=== PATIENT | female | born 1980 | race Caucasian/White ===

== ENCOUNTER 2017-09-14 16:39 | Emergency (ER) | payer BC ==
--- NOTE | 2017-09-14 18:08 | ED ---
Respiratory - HPI Summary HPI Summary: 37 yr old female with the complaint of coughing for 3-4 weeks. She states she has had persistent coughing, clear sputum. Denies CP, SOB. Denies fever or chills. Denies dizziness. She states she is not a smoker. No history of asthma. - History of Current Complaint Chief Complaint: UCGeneralIllness Stated Complaint: COUGH/COLD Time Seen by Provider: 09/14/17 17:39 - Allergy/Home Medications Allergies/Adverse Reactions: Allergies Allergy/AdvReac Type Severity Reaction Status Date / Time No Known Allergies Allergy Verified 09/14/17 17:16 Home Medications: Home Medications Folic Acid TAB* [Folvite TAB*] 1 mg PO DAILY 09/14/17 [History Confirmed ] Perampanel [Fycompa] 2 mg PO DAILY 09/14/17 [History Confirmed 09/14/17] Pseudoephedrine-Guaifenesin [Mucinex D 60-600 mg] 1 tab PO DAILY PRN 09/14/17 [ History Confirmed 09/14/17] carBAMazepine TAB(*) [TEGretol TAB(*)] 200 mg PO SEE INSTRUCTIONS 09/14/17 [ History Confirmed 09/14/17] PMH/Surg Hx/FS Hx/Imm Hx - Surgical History Surgery Procedure, Year, and Place: VAGAL NERVE STIM IMPLANT Infectious Disease History: No Infectious Disease History: Denies: Traveled Outside the [place] in Last 30 Days - Family History Known Family History: Positive: None - Social History Alcohol Use: None Substance Use Type: Reports: Prescribed Smoking Status (MU): Never Smoked Tobacco Review of Systems Constitutional: Negative Positive: Cough All Other Systems Reviewed And Are Negative: Yes Physical Exam Triage Information Reviewed: Yes Vital Signs On Initial Exam: Initial Vitals Temp Pulse Resp BP Pulse Ox 98.3 F 74 18 123/52 97 09/14/17 17:08 09/14/17 17:08 09/14/17 17:08 09/14/17 17:08 09/14/17 17:08 Vital Signs Reviewed: Yes Appearance: Positive: Well-Appearing, No Pain Distress Skin: Positive: Skin Color Reflects Adequate Perfusion Head/Face: Positive: Normal Head/Face Inspection Eyes: Positive: EOMI ENT: Positive: Pharynx normal, TMs normal Neck: Positive: Supple, Nontender Respiratory/Lung Sounds: Positive: Clear to Auscultation, Breath Sounds Present Cardiovascular: Positive: RRR. Negative: Murmur Abdomen Description: Positive: Nontender Musculoskeletal: Positive: Strength/ROM Intact. Negative: Edema Left, Edema Right Neurological: Positive: Sensory/Motor Intact, Alert, Oriented to Person Place, Time, CN Intact II-III Psychiatric: Positive: Normal - Syd Coma Scale Best Eye Response: 4 - Spontaneous Best Motor Response: 6 - Obeys Commands Best Verbal Response: 5 - Oriented Diagnostics - Vital Signs Vital Signs Temp Pulse Resp BP Pulse Ox 09/14/17 17:08 98.3 F 74 18 123/52 97 - Laboratory Lab Statement: Any lab studies that have been ordered have been reviewed, and results considered in the medical decision making process. - Radiology chest xray Xray Interpretation: Positive (See Comments) Radiology Interpretation Completed By: Radiologist Disposition - Course Course Of Treatment: 37 yr old with right lower lobe pneumonia. Plan DC home on antibiotics. - Diagnoses Provider Diagnoses: Pneumonia Discharge - Discharge Plan Condition: Good Disposition: HOME Prescriptions: Amoxicillin/Clavulanate TAB* [Augmentin TAB 875*] 875 mg PO BID #20 tab Azithromycin TAB* [Zithromax TAB (Z-NATALIA) 250 mg #6 tabs] 2 tab PO .TODAY, THEN 1 DAILY #1 natalia Patient Education Materials: Bacterial Pneumonia (ED) Referrals: Family [facility] [Primary Care Provider] -
--- NOTE | 2017-09-14 18:47 | RAD ---
HISTORY: cough COMPARISONS: None VIEWS: 4: Frontal dual-energy and lateral views of the chest. FINDINGS: CARDIOMEDIASTINAL SILHOUETTE: The cardiomediastinal silhouette is normal. CHRISTIANE: The christiane are normal. PLEURA: The costophrenic angles are sharp. No pleural abnormalities are noted. LUNG PARENCHYMA: There is faint alveolar opacification of the right lower lung. ABDOMEN: The upper abdomen is clear. There is no subphrenic gas. BONES AND SOFT TISSUES: No bone or soft tissue abnormalities are noted. OTHER: A vagal nerve stimulator is noted. IMPRESSION: FAINT AIRSPACE DISEASE OF THE RIGHT LOWER LUNG.
[2017-09-14 19:15] VITALS: BP 115/55
== END 2017-09-14 19:14 | disposition home or self-care (01) ==
LOC: UCCORT 16:39
DX: J18.9 Pneumonia, unspecified organism (principal); Z32.02 Encounter for pregnancy test, result negative
CPT/HCPCS: 71020; 84702; 99202; G0463